=== PATIENT | male | born 1965 | race Caucasian/White ===

== ENCOUNTER → 2022-01-05 12:19 | Outpatient (CLI) | payer OTHER, SELFPAY ==
--- NOTE | 2022-01-05 12:29 | XR_ITS ---
FINAL REPORT CLINICAL HISTORY: LUNG CONDITION, non smoker FINDINGS: TWO VIEW CHEST Two views of the chest were obtained. The heart size and pulmonary vascularity are within normal limits. The mediastinum is normal. There are postoperative changes in the right lung. The left lung is clear. There is no pneumothorax. The bony thorax is intact. IMPRESSION: No active cardiopulmonary disease. Reviewed, Interpreted and Dictated by Kevin Kearney III, MD Transcribed by Aleena Rivera Authenticated and [facility]
== END ==
PROVIDERS: PCP Chiropractor; Visit Provider Chiropractor
DX: J98.9 Respiratory disorder, unspecified
CPT/HCPCS: 71046; 94060